=== PATIENT | male | born 1955 | race Caucasian/White ===

== ENCOUNTER → 2022-04-27 09:48 | Outpatient (CLI) | payer MEDICARE, SELFPAY ==
[2022-04-27 19:10] LABS: Add Manual Diff / Slide Review NO; Basophils Absolute Auto 0 /uL (0-100); Basophils Percent Auto 1.1 % (0-2); Eosinophils Absolute Auto 100 /uL (0-450); Eosinophils Percent Auto 3.5 % (2-4); Hemoglobin 14.6 g/dL (13.5-17.5); Lymphocytes Absolute Auto 1100 /uL (1100-4500); Lymphocytes Percent Auto 27.1 % (25-40); Mean Corpuscular HGB Conc 33.9 % (30-36); Mean Corpuscular Hemoglobin 29.8 PG (26-34); Mean Corpuscular Volume 87.8 fL (80-100); Monocytes Absolute Auto 600 /uL (0-900); Monocytes Percent Auto 14.1 % (3-14); Neutrophils Absolute Auto 2300 /uL (1500-7000); Neutrophils Percent Auto 54.2 % (50-75); Platelet Count 203 X10^3/uL (150-400); Red Blood Cell Count 4.89 X10^6/uL (4.5-5.9); Red Cell Distribution Width 13.9 % (11.6-14.8); White Blood Cell Count 4.2 X10^3/uL (4.5-11.0)
[2022-04-27 19:38] LABS: Hemoglobin A1C% w Est Avg Glu 5.8 % (4.0-6.0)
[2022-04-27 19:40] LABS: Alanine Aminotransferase 30 IU/L (<50); Albumin 4.7 g/dL (3.5-5.0); Albumin Globulin Ratio 1.9 (1.0-2.8); Alkaline Phosphatase 54 U/L (38-126); Aspartate Aminotransferase 34 IU/L (17-59); BUN Creatinine Ratio 26.2 (6-22); Bilirubin Total 0.6 mg/dL (0.2-1.3); Blood Urea Nitrogen 22 mg/dL (9-20); Calcium 9.4 mg/dL (8.4-10.2); Carbon Dioxide 29 mmol/L (22-32); Chloride 105 mmol/L (98-107); Cholesterol 152 mg/dL (140-199); Estimated Glomerular Filt Rate > 60 mL/min (>60); Globulin 2.5 g/dL (1.7-4.1); Glucose 127 mg/dL (80-110); HDL Cholesterol 66 mg/dL (40-60); HEMOLYSIS < 15 (0-50); LDL Cholesterol Calculated 70 mg/dL (<100); Sodium 140 mmol/L (137-145); Total Protein 7.2 g/dL (6.3-8.2); Triglycerides 82 mg/dL (35-150)
[2022-04-27 20:09] LABS: Prostate Specific Antigen Scrn 1.73 ng/mL (0.1-4.0)
== END ==
PROVIDERS: PCP Physician Assistant; Visit Provider Physician Assistant
DX: Z12.5 Encounter for screening for malignant neoplasm of prostate (principal); E78.5 Hyperlipidemia, unspecified; R73.03 Prediabetes; K21.9 Gastro-esophageal reflux disease without esophagitis; Z13.220 Encounter for screening for lipoid disorders
CPT/HCPCS: 80053; 80061; 83036; 85025; G0103

== ENCOUNTER → 2022-06-15 12:42 | Outpatient (CLI) | payer MEDICARE, SELFPAY ==
--- NOTE | 2022-06-15 12:44 | DI.US.S_ITS ---
PROCEDURE: US SOFT TISSUE HEAD AND NECK INDICATIONS: chronic throat pain; possible mass left side cervical TECHNIQUE: Real-time scanning was performed of the neck region of interest, with image documentation. COMPARISON: None. FINDINGS: Focused ultrasound examination of bilateral necks show no discrete soft tissue mass or fluid collection. Normal size lymph nodes are seen in bilateral neck soft tissue measures up to 1.1 x 1.2 x 0.5 cm on the right side and 1.1 x 1.5 x 0.5 cm on the left side. IMPRESSION: No soft tissue mass or fluid collection is seen in neck soft tissue. No neck soft tissue lymphadenopathy. Dictated by: Jere Grider M.D. on 06/15/2022 at 16:29 Approved by: Jere Grider M.D. on 06/15/2022 at 16:29
== END ==
PROVIDERS: PCP Physician Assistant; Referring Provider Physician Assistant; Visit Provider Physician Assistant
DX: J02.9 Acute pharyngitis, unspecified (principal)
CPT/HCPCS: 76536

== ENCOUNTER → 2023-04-19 11:17 | Outpatient (CLI) | payer MEDICARE, SELFPAY ==
[2023-04-19 19:59] LABS: Alanine Aminotransferase 29 IU/L (<50); Albumin 4.5 g/dL (3.5-5.0); Albumin Globulin Ratio 1.6 (1.0-2.8); Alkaline Phosphatase 48 U/L (38-126); Aspartate Aminotransferase 29 IU/L (17-59); BUN Creatinine Ratio 22.6 (6-22); Bilirubin Total 0.7 mg/dL (0.2-1.3); Blood Urea Nitrogen 19 mg/dL (9-20); Calcium 9.6 mg/dL (8.4-10.2); Carbon Dioxide 28 mmol/L (22-32); Chloride 101 mmol/L (98-107); Estimated Glomerular Filt Rate > 60 mL/min (>60); Globulin 2.9 g/dL (1.7-4.1); Glucose 121 mg/dL (80-110); HEMOLYSIS < 15 (0-50); Potassium 4.9 mmol/L (3.4-5.1); Sodium 137 mmol/L (137-145); Total Protein 7.4 g/dL (6.3-8.2)
[2023-04-19 20:25] LABS: Prostate Specific Antigen Scrn 2.02 ng/mL (0.1-4.0)
[2023-04-21 00:13] LABS: x Labcorp Estim. Avg Glu (eAG) 126 mg/dL (.)
[2023-04-21 10:55] LABS: Interpretation Negative (Negative)
== END ==
PROVIDERS: PCP Physician Assistant; Visit Provider Physician Assistant
DX: Z12.5 Encounter for screening for malignant neoplasm of prostate (principal); K21.9 Gastro-esophageal reflux disease without esophagitis; E78.5 Hyperlipidemia, unspecified; R73.03 Prediabetes
CPT/HCPCS: 80053; 83013; 83036; G0103

== ENCOUNTER → 2023-05-25 11:39 | Outpatient (CLI) | payer MEDICARE, SELFPAY ==
[2023-05-25 19:41] LABS: Appearance Urine UA CLEAR; Bilirubin Urine UA NEGATIVE (NEGATIVE); Color Urine UA YELLOW; Glucose Urine UA NEGATIVE (Negative); Ketones Urine UA NEGATIVE (NEGATIVE); Leukocyte Esterase Urine UA NEGATIVE (NEGATIVE); Nitrite Urine UA NEGATIVE (Negative); Occult Blood Urine UA TRACE-INTACT (Negative); Protein Urine UA NEGATIVE (Negative); Specific Gravity Urine UA 1.025 (1.000-1.035); Urobilinogen Urine UA 0.2 E.U./dL (0.2); pH Urine UA 5.5 (4.5-8.0)
== END ==
PROVIDERS: PCP Physician Assistant; Visit Provider Urology
DX: R31.21 Asymptomatic microscopic hematuria (principal); Z87.891 Personal history of nicotine dependence
CPT/HCPCS: 81003

== ENCOUNTER → 2023-06-01 11:19 | Outpatient (CLI) | payer MEDICARE, SELFPAY ==
[2023-06-01 21:14] LABS: Appearance Urine UA CLEAR; Bilirubin Urine UA NEGATIVE (NEGATIVE); Color Urine UA YELLOW; Glucose Urine UA NEGATIVE (Negative); Ketones Urine UA NEGATIVE (NEGATIVE); Leukocyte Esterase Urine UA NEGATIVE (NEGATIVE); Nitrite Urine UA NEGATIVE (Negative); Occult Blood Urine UA NEGATIVE (Negative); Protein Urine UA NEGATIVE (Negative); Specific Gravity Urine UA 1.025 (1.000-1.035); Urobilinogen Urine UA 0.2 E.U./dL (0.2); pH Urine UA 5.5 (4.5-8.0)
== END ==
PROVIDERS: PCP Physician Assistant; Visit Provider Urology
DX: R31.21 Asymptomatic microscopic hematuria (principal); Z87.891 Personal history of nicotine dependence
CPT/HCPCS: 81003

== ENCOUNTER → 2023-06-08 11:19 | Outpatient (CLI) | payer MEDICARE, SELFPAY ==
[2023-06-08 20:17] LABS: Appearance Urine UA CLEAR; Bilirubin Urine UA NEGATIVE (NEGATIVE); Color Urine UA YELLOW; Glucose Urine UA NEGATIVE (Negative); Ketones Urine UA NEGATIVE (NEGATIVE); Leukocyte Esterase Urine UA NEGATIVE (NEGATIVE); Nitrite Urine UA NEGATIVE (Negative); Occult Blood Urine UA NEGATIVE (Negative); Protein Urine UA NEGATIVE (Negative); Urobilinogen Urine UA 0.2 E.U./dL (0.2)
== END ==
PROVIDERS: PCP Physician Assistant; Visit Provider Urology
DX: R31.21 Asymptomatic microscopic hematuria (principal); Z87.891 Personal history of nicotine dependence
CPT/HCPCS: 81003

== ENCOUNTER 2023-06-23 11:15 | Day surgery (SDC) | payer MEDICARE, SELFPAY ==
--- NOTE | 2023-06-23 | PATH_ITS ---
[facility] Accession Number: [id number] No. of containers..03 Tissue . 01 Material submitted: . PART A: stomach - ANTRUM PART B: duodenum - DUODENUM PART C: duodenum bulb - DUODENAL BULB . 01 Diagnosis: A- STOMACH, ANTRUM, BIOPSY: ANTRAL GASTRIC MUCOSA WITH MILD REACTIVE GASTROPATHY. NO H. PYLORI LIKE ORGANISMS IDENTIFIED (BY THE H/E AND IMMUNOHISTOCHEMICAL STAINED SLIDE SECTIONS). NO INTESTINAL METAPLASIA, DYSPLASIA OR MALIGNANCY IDENTIFIED. SEE COMMENT: - B- DUODENUM, BIOPSY: BENIGN DUODENAL MUCOSA WITH PRESERVED VILLOUS ARCHITECTURE AND NO EVIDENCE OF CELIAC DISEASE. NEGATIVE FOR ACTIVE OR CHRONIC INFLAMMATION. - C- DUODENAL BULB, BIOPSY: BENIGN DUODENAL MUCOSA WITH PRESERVED VILLOUS ARCHITECTURE AND NO EVIDENCE OF CELIAC DISEASE. NEGATIVE FOR ACTIVE OR CHRONIC INFLAMMATION. . COMMENT: H. PYLORI IMMUNOHISTOCHEMICAL STAIN WAS PERFORMED ON PART A AND IS NEGATIVE. TECHNICAL NOTE: THE IMMUNOHISTOCHEMICAL STAINS REPORTED WERE PERFORMED AT [facility] ([address], [facility] [address]). THEY WERE DEVELOPED AND THEIR PERFORMANCE CHARACTERISTICS DETERMINED BY [facility], [email or web address]. THEY HAVE NOT BEEN CLEARED OR APPROVED BY THE [employer], ALTHOUGH SUCH APPROVAL IS NOT REQUIRED FOR ANALYTE-SPECIFIC REAGENTS OF THIS TYPE. TXN 07/06/2023 1348 [facility] . 01 Electronically signed: . Tawterri Wagner MD, Pathologist NPI- [id number] . 01 Gross description: . Part A: ANTRUM: Received in formalin is multiple fragment(s) of scruggs, soft tissue measuring 0.8 x 0.4 x 0.1 cm in aggregate submitted entirely in 1 cassette(s) Part B: DUODENUM: Received in formalin is 1 fragment(s) of scruggs, soft tissue measuring 0.3 x 0.2 x 0.2 cm submitted entirely in 1 cassette(s) Part C: DUODENAL BULB: Received in formalin is 2 fragment(s) of scruggs, soft tissue measuring 0.3 x 0.2 x 0.1 cm to 0.2 x 0.2 x 0.1 cm submitted entirely in 1 cassette(s) /AAY 06/28/2023 0730 [facility] . 01 Pathologist provided ICD-10: R10.9, K21.9 . 01 CPT . 493533, 061526, 045062, [id number] Specimen Comment: A courtesy copy of this report has been sent to [phone] Performed at: 01 [facility] [address] [place] [address], [place], [place] [id number] MD Felice Dempsey MD Phone: [phone]
[2023-06-23 11:29] VITALS: BP 159/91; PULSE 66; RESP 16; TEMP 36.6; O2SAT 96; BMI 24.5
[2023-06-23] MEDS: LACTATED RINGERS 1,000 ML 84 ML IV (11:38)
--- NOTE | 2023-06-23 12:43 | PM.HP.1 ---
History of Present Illness History of Present Illness Date Patient Seen: 06/23/23 Time Patient Seen: 12:43 Chief complaint: EGD w/poss bx Narrative: Salvador is here for his EGD. See office note from April for details. He has had gastroesophageal reflux for years but it has worsened recently. [facility] Medical History (Updated 06/21/23 @ 11:40 by Jnaak Silva MD) Asymptomatic microscopic hematuria Colon cancer screening Depression History of tobacco use Lower urinary tract symptoms Male circumcision Medicare annual wellness visit, initial Sore throat Testicular pain, right Surgical History Anesthesia History of colonoscopy History of eye surgery (~1958) Family History Father History of heart disease Mother Cancer Sister Cancer Family/Other Asperger's syndrome Autism spectrum Family/Other Suicide Social History marital status: number of children: 2 household members: spouse Smoking Status: Former smoker alcohol intake: current Type(s) of exercise: walking frequency: daily Meds Home Medications and Allergies Home Medications Medication Instructions Recorded Confirmed Type atorvastatin 20 mg tablet 20 mg PO DAILY #90 tabs 04/19/23 06/23/23 Rx sildenafil 50 mg tablet 50 mg PO DAILY PRN Erectile 04/19/23 06/23/23 History Dysfunction omeprazole 20 mg capsule,delayed 20 mg PO DAILY Heartburn issues 06/21/23 06/23/23 History release Allergies Allergy/AdvReac Type Severity Reaction Status Date / Time No Known Drug Allergies Allergy Verified 06/23/23 11:27 Exam Vital Signs (past 8 hours): - 06/23/23 11:29 Temperature 97.9 F Pulse Rate 66 Respiratory Rate 16 Blood Pressure 159/91 H Pulse Oximetry 96 Oxygen Delivery Method Room Air Oxygen Delivery Method Room Air Const General: healthy appearing Assessment & Plan Assessment and plan (1) GERD (gastroesophageal reflux disease): Problem details: per GI ok to continue w/ daily suppressive PPI or H2B Qualifiers: Esophagitis presence: esophagitis presence not specified Qualified Code(s): K21.9 - Gastro-esophageal reflux disease without esophagitis Status: Acute Plan We reviewed the risks and benefits of esophagogastroduodenoscopy and he would like to proceed.
[2023-06-23 13:01] VITALS: BP 117/78; PULSE 74; RESP 12; TEMP 36.5; O2SAT 97
--- NOTE | 2023-06-23 13:03 | PM.OP.EGD ---
Operative Date/Time/Diagnoses Date of procedure: 06/23/23 Time of procedure: 13:03 Pre-op diagnosis: GERD Post-op diagnosis: same Procedure & Clinicians Study performed: Esophagogastroduodenoscopy Same procedure as scheduled: Yes Surgeon: Redd Alicia Procedure Notes Procedure in detail: Surgeon: Redd Alicia MD Anesthesia: Ziggy Dimas timeout was performed. A bite blocked was placed. The patient was positioned in the left lateral decubitus position. Anesthesia was administered. The endoscope was inserted through the bite block and passed through the esophagus and stomach and into the duodenum. The duodenal mucosa appeared normal. Some random biopsies were taken from the duodenal mucosa. The scope was withdrawn into the duodenal bulb and random biopsies were taken from the duodenal bulb mucosa. The scope was withdrawn into the stomach. There was some mild antritis and random biopsies were taken from the antrum. The rest of the stomach was normal other than some debris in the body of the stomach. The scope was retroflexed and no hiatal hernia was seen. The scope was withdrawn into the esophagus and no abnormalities were seen. The remainder of the esophagus was normal. The scope was withdrawn. The patient was awakened and brought to recovery. Sedation time: 7 minutes Findings: Mild antritis Post-procedure Disposition: PACU
[2023-06-23 13:06] VITALS: BP 116/77; PULSE 66; RESP 12; O2SAT 99
[2023-06-23 13:11] VITALS: BP 118/77; PULSE 63; RESP 12; O2SAT 99
[2023-06-23 13:15] VITALS: BP 129/97; PULSE 67; RESP 12; O2SAT 99
[2023-06-23 13:27] VITALS: BP 148/100; PULSE 64; RESP 12; TEMP 37; O2SAT 97
== END 2023-06-23 13:35 | disposition home or self-care (01) ==
PROVIDERS: PCP Family Medicine; Referring Provider Surgery; Visit Provider Surgery
PROC: 0DJ08ZZ Inspection of Upper Intestinal Tract, Via Natural or Artificial Opening Endoscopic (ICD-10-PCS; CPT 43235; principal; 2023-06-23 12:30)
DX: K31.9 Disease of stomach and duodenum, unspecified (principal)
CPT/HCPCS: 43239; J2704

== ENCOUNTER → 2023-09-05 11:23 | Outpatient (CLI) | payer MEDICARE, SELFPAY ==
[2023-09-05 19:37] LABS: Add Manual Diff / Slide Review NO; Basophils Absolute Auto 0 /uL (0-100); Basophils Percent Auto 0.8 % (0-2); Eosinophils Absolute Auto 100 /uL (0-450); Eosinophils Percent Auto 2.4 % (2-4); Hematocrit 41.3 % (41-53); Lymphocytes Absolute Auto 1500 /uL (1100-4500); Lymphocytes Percent Auto 31.8 % (25-40); Mean Corpuscular HGB Conc 33.9 % (30-36); Mean Corpuscular Hemoglobin 29.7 PG (26-34); Mean Corpuscular Volume 87.6 fL (80-100); Monocytes Absolute Auto 500 /uL (0-900); Monocytes Percent Auto 11.4 % (3-14); Neutrophils Absolute Auto 2500 /uL (1500-7000); Neutrophils Percent Auto 53.6 % (50-75); Platelet Count 196 X10^3/uL (150-400); Red Blood Cell Count 4.71 X10^6/uL (4.5-5.9); Red Cell Distribution Width 13.9 % (11.6-14.8); White Blood Cell Count 4.6 X10^3/uL (4.5-11.0)
[2023-09-05 19:48] LABS: BUN Creatinine Ratio 23.9 (6-22); Blood Urea Nitrogen 22 mg/dL (9-20); Calcium 9.7 mg/dL (8.4-10.2); Carbon Dioxide 28 mmol/L (22-32); Chloride 104 mmol/L (98-107); Estimated Glomerular Filt Rate > 60 mL/min (>60); Glucose 120 mg/dL (80-110); HEMOLYSIS < 15 (0-50); Potassium 4.8 mmol/L (3.4-5.1); Sodium 141 mmol/L (137-145)
[2023-09-05 21:22] LABS: Creatinine Urine Random 129.5 mg/dL
[2023-09-05 21:26] LABS: Microalbumi Creatinin Ratio Ur 23.9 ug/mg CR (<30); Microalbumin Urine Random 3.1 mg/dL (0-1.6)
== END ==
PROVIDERS: PCP Family Medicine; Visit Provider Family Medicine
DX: K21.9 Gastro-esophageal reflux disease without esophagitis (principal); R73.03 Prediabetes; R31.21 Asymptomatic microscopic hematuria; E78.5 Hyperlipidemia, unspecified; D72.819 Decreased white blood cell count, unspecified
CPT/HCPCS: 80048; 82043; 82570; 83036; 85025

== ENCOUNTER → 2023-09-12 12:18 | Outpatient (CLI) | payer MEDICARE, SELFPAY ==
[2023-09-12 19:24] LABS: Cholesterol 154 mg/dL (140-199); HDL Cholesterol 64 mg/dL (40-60); LDL Cholesterol Calculated 76 mg/dL (<100); Triglycerides 70 mg/dL (35-150)
== END ==
PROVIDERS: PCP Family Medicine; Visit Provider Family Medicine
DX: E78.5 Hyperlipidemia, unspecified (principal)
CPT/HCPCS: 80061

== ENCOUNTER 2023-10-04 08:00 | Day surgery (SDC) | payer MEDICARE, SELFPAY ==
[2023-10-03 10:53] VITALS: BMI 24.3
[2023-10-04 08:19] VITALS: BMI 24.3
[2023-10-04 08:32] VITALS: BP 136/83; PULSE 63; RESP 16; TEMP 36.9; O2SAT 99
[2023-10-04] MEDS: LACTATED RINGERS 1,000 ML 42 ML IV (08:32)
--- NOTE | 2023-10-04 08:32 | PM.HP.1 ---
History of Present Illness History of Present Illness Date Patient Seen: 10/04/23 Time Patient Seen: 08:32 Chief complaint: Open RIH Repair w/mesh Narrative: Salvador is a 68-year-old man with a right inguinal hernia. See office note from May for details. He reports no changes to his right inguinal hernia symptoms since May. [facility] Medical History (Updated 09/12/23 @ 12:51 by Janak Silva MD) Lower urinary tract symptoms History of tobacco use Male circumcision Testicular pain, right Sore throat Medicare annual wellness visit, initial Colon cancer screening Depression Surgical History Anesthesia History of colonoscopy History of eye surgery (~1958) Family History Father History of heart disease Mother Cancer Sister Cancer Family/Other Asperger's syndrome Autism spectrum Family/Other Suicide Social History marital status: number of children: 2 household members: spouse Smoking Status: Former smoker alcohol intake: current Type(s) of exercise: walking frequency: daily Meds Home Medications and Allergies Home Medications Medication Instructions Recorded Confirmed Type sildenafil 50 mg tablet 50 mg PO DAILY PRN Erectile 04/19/23 10/04/23 History Dysfunction omeprazole 20 mg capsule,delayed 20 mg PO DAILY Heartburn issues 06/21/23 10/04/23 History release atorvastatin 20 mg tablet 20 mg PO DAILY #90 tabs 07/27/23 10/04/23 Rx Allergies Allergy/AdvReac Type Severity Reaction Status Date / Time No Known Drug Allergies Allergy Verified 10/04/23 08:14 Exam Narrative Exam Narrative: Right inguinal hernia Const General: healthy appearing Assessment & Plan Assessment and plan (1) Inguinal hernia, right: Status: Acute Plan We reviewed the risks and benefits of an open right inguinal hernia repair with mesh and he would like to proceed.
[2023-10-04] MEDS: CEFAZOLIN 2 GM/100 ML PREMIX 100 ML IV (08:49)
--- NOTE | 2023-10-04 09:05 | SUR.OPER ---
Supine on padded OR bed, head on pillow, arms secured on padded arm boards at <90 degrees abduction, legs uncrossed, safety belt at thigh, tape over blanket over lower legs.
[2023-10-04] MEDS: BUPIVACAINE 0.5% (PF) 30 ML, EPINEPHrine 0.15 MG INJ (09:10)
[2023-10-04 10:00] VITALS: BP 141/77; PULSE 75; RESP 14; TEMP 35.9; O2SAT 99
--- NOTE | 2023-10-04 10:00 | PM.OP.1 ---
Operative Date/Time/Diagnoses Date of procedure: 10/04/23 Time of procedure: 10:00 Pre-op diagnosis: Right inguinal hernia Post-op diagnosis: same Procedure & Clinicians Procedure: Open right inguinal hernia repair with mesh Same procedure as scheduled: Yes Surgeon: Redd Alicia Anesthesia Type: General Operative Notes Procedure in detail: Preoperative antibiotic was administered. The patient was brought to the operating room and placed on the table in supine position general anesthesia was induced. The right groin was prepped and draped in the normal fashion and a time-out was performed. Roughly 10 mL of local anesthetic were injected into the skin and subcutaneous adipose tissue over the right groin. A 6 cm incision was made over the right inguinal canal. Dissection was carried down through the subcutaneous adipose tissue. We exposed the external oblique aponeurosis in the direction of the fibers. Additional local was injected deep to the aponeurosis. A 15 blade scalpel was used to estela the external oblique aponeurosis. Metzenbaum scissors were used to carefully open the aponeurosis in the direction of the fibers taking care not to injure the underlying ilioinguinal nerve. We completely exposed the inguinal canal. The cord was dissected free from the inguinal ligament and floor of the inguinal canal and the external oblique aponeurosis was dissected off of the internal oblique taking care not to injure the hypogastric nerve. We encircled the cord with a Thomas drain for retraction. There was an indirect defect and a small cord lipoma. The cord lipoma and hernia were dissected off the cord structures and reduced into the abdomen. We then placed a polypropylene mesh against the floor of the inguinal canal. The mesh was secured with multiple interrupted 3-0 Prolene sutures to the pubic tubercle and shelving edge of the inguinal ligament as well as to the conjoint tendon medially. We overlapped the tails to recreate an internal ring and secured the medial tail to the inguinal ligament with additional sutures. We injected some more local into the fatty tissue in the inguinal canal and cord. Finally, we removed the Sally drain and closed the external oblique fascia with a running 3-0 Vicryl suture. Skin was closed with interrupted 3-0 Vicryl dermal sutures and a running 4 Monocryl subcuticular stitch. EBL 5 mL The patient was awakened and brought to recovery room. Post-operative Condition: stable Disposition: PACU
[2023-10-04 10:05] VITALS: BP 141/81; PULSE 74; RESP 15; O2SAT 97
[2023-10-04] MEDS: ACETAMINOPHEN 325 MG TABLET 650 MG PO (10:06)
[2023-10-04 10:10] VITALS: BP 141/86; PULSE 66; RESP 13; TEMP 35.9; O2SAT 98
[2023-10-04 10:15] VITALS: BP 141/86; PULSE 62; RESP 13; TEMP 35.9; O2SAT 97
[2023-10-04 10:30] VITALS: BP 139/88; PULSE 63; RESP 16; TEMP 36.1; O2SAT 98
[2023-10-04 11:11] LABS: Alanine Aminotransferase 31 IU/L (<50)
[2023-10-05 17:10] LABS: Hepatitis B Surface Antigen NEGATIVE s/c (NEGATIVE)
[2023-10-05 17:23] LABS: HIV 1 & 2 Ab/Ag 4th Gen Combo NEGATIVE (NEGATIVE); Hep C Virus Ab w/Reflex Quant NEGATIVE s/c (NEGATIVE)
[2023-10-05 20:04] LABS: Hepatitis B Surf Ab Qualitativ Non Reactive (.)
== END 2023-10-04 10:45 | disposition home or self-care (01) ==
PROVIDERS: PCP Family Medicine; Referring Provider Surgery; Visit Provider Surgery
PROC: (CPT 49505; principal; 2023-10-04 09:15)
DX: K40.90 Unilateral inguinal hernia, without obstruction or gangrene, not specified as recurrent (principal); D17.6 Benign lipomatous neoplasm of spermatic cord
CPT/HCPCS: 49505; J0171; J0690; J1100; J2250; J2405; J2704; J3010

== ENCOUNTER → 2023-11-14 14:01 | Outpatient (CLI) | payer MEDICARE, SELFPAY ==
[2023-11-14 19:52] LABS: Appearance Urine UA CLEAR; Bilirubin Urine UA NEGATIVE (NEGATIVE); Color Urine UA YELLOW; Glucose Urine UA NEGATIVE (Negative); Ketones Urine UA NEGATIVE (NEGATIVE); Leukocyte Esterase Urine UA NEGATIVE (NEGATIVE); Nitrite Urine UA NEGATIVE (Negative); Occult Blood Urine UA TRACE-INTACT (Negative); Protein Urine UA NEGATIVE (Negative); Specific Gravity Urine UA >=1.030 (1.000-1.035); Urobilinogen Urine UA 0.2 E.U./dL (0.2)
[2023-11-14 20:06] LABS: Bacteria Urine None Seen; Culture Indicated Urine Cult Not Indicated; RBC Urine 0-1/HPF (0-5/HPF); Squamous Epithelial Cell Urine 0-1 /HPF (0-5/HPF); WBC Urine 0-1/HPF (0-5/HPF)
== END ==
PROVIDERS: PCP Family Medicine; Visit Provider Urology
DX: R39.9 Unspecified symptoms and signs involving the genitourinary system (principal); R31.29 Other microscopic hematuria
CPT/HCPCS: 81001

== ENCOUNTER → 2023-12-02 09:23 | Outpatient (CLI) | payer MEDICARE, SELFPAY ==
--- NOTE | 2023-12-02 09:26 | DI.CT.S_ITS ---
PROCEDURE: CT ABDOMEN PELVIS WO/W CON INDICATIONS: Asymptomatic microscopic hematuria/history of tobacco use TECHNIQUE: Optional 5 mm thick noncontrast images acquired from the diaphragm to the symphysis pubis. After the administration of intravenous contrast, 5 mm thick images acquired from the diaphragm to the symphysis pubis after a 10-minute delay. 2 mm thick coronal and sagittal reformats were then performed of the kidneys and ureters. For radiation dose reduction, the following was used: automated exposure control, adjustment of mA and/or kV according to patient size. COMPARISON: None. FINDINGS: Image quality: Diagnostic. Kidneys and Ureters: Both kidneys are normal in size, without hydronephrosis or nephrolithiasis. No perinephric fat stranding. There is normal bilateral renal enhancement. Renal calyces appear normal in morphology when filled with contrast. Opacified portions of both ureters demonstrate normal caliber Bladder: Bladder wall thickness is normal. No calcified bladder stones. OTHER: Lower chest: Unremarkable. Liver: No solid mass. Gallbladder: No radiopaque gallstones or wall thickening. Biliary ducts: No biliary dilation. Pancreas: No ductal dilation. Spleen: Size is within normal limits. Adrenal Glands: No adrenal nodules. Stomach and Bowel: Normal colonic caliber, without significant wall thickening. Normal appendix Peritoneum: No abnormal intraperitoneal fluid. No free air. Ventral Wall: No significant hernia. Abdominal Nodes: No retroperitoneal or mesenteric adenopathy by size criteria. Vessels: Aorta and inferior vena cava are normal in size. PELVIS: Pelvic Organs: Prominent prostate gland. Pelvic Nodes: No enlarged lymph nodes. Miscellaneous: No inguinal hernias are seen. Scarring at the right groin. Bones: No aggressive osseous abnormality. Benign L2 intraosseous hemangioma. IMPRESSION: 1. No kidney stones. No hydronephrosis. 2. No solid renal mass. 3. No upper urinary tract filling defect. Dictated by: Win Hilton M.D. on 12/02/2023 at 13:22 Approved by: Win Hilton M.D. on 12/02/2023 at 13:27
[2023-12-02 09:57] LABS: Estimated Glomerular Filt Rate > 60 mL/min (>60)
== END ==
LOC: CT 09:24
PROVIDERS: Radiology Diagnostic Radiology; PCP Family Medicine; Referring Provider Urology; Visit Provider Urology
DX: R31.21 Asymptomatic microscopic hematuria (principal); Z87.891 Personal history of nicotine dependence
CPT/HCPCS: 36415; 74178; 82565; Q9967

== ENCOUNTER → 2024-04-10 09:46 | Outpatient (CLI) | payer MEDICARE, SELFPAY ==
[2024-04-13 18:56] LABS: Fecal Immunochemical Test Negative (Negative)
== END ==
LOC: LAB 07-02 09:42
PROVIDERS: PCP Family Medicine; Referring Provider Physician Assistant; Visit Provider Physician Assistant
DX: Z12.11 Encounter for screening for malignant neoplasm of colon (principal)
CPT/HCPCS: 82274

== ENCOUNTER → 2024-04-24 11:55 | Outpatient (CLI) | payer MEDICARE, SELFPAY ==
--- NOTE | 2024-04-24 11:56 | DI.MRI.S_ITS ---
PROCEDURE: MR HEAD/BRAIN WO/W CON INDICATIONS: Dizziness, brain fog, memory change, morning headaches. TECHNIQUE: Noncontrast axial T1 spin echo, axial T2 fast spin echo, sagittal and axial FLAIR, coronal T2 fast spin echo, axial gradient echo, axial diffusion and ADC through the brain. After the administration of contrast, axial and coronal and sagittal T1 spin echo with fat saturation through the brain. COMPARISON: None. FINDINGS: Image quality: Excellent. CSF spaces: Basal cisterns are patent. No extra-axial fluid collections. Ventricles are normal in size and shape. Brain: No midline shift. No intracranial bleeds or masses. No abnormal intracranial enhancement. There is cerebral volume loss for age. There is periventricular white matter chronic small vessel ischemic change. The brainstem appears normal. Diffusion-weighted images demonstrate no acute infarct. No chronic ischemic insults. Normal intravascular flow voids are present. Note is made that the pituitary tissue is largely flattened along the floor of the sella turcica. This is considered to be an anatomic variant. Skull and face: Calvarial marrow is normal in signal. Orbits appear normal. Sinuses: Early mucous retention cysts can be seen within the left maxillary sinus. Sinuses and mastoids otherwise are relative clear. IMPRESSION: No imaging explanation is found for this patient's presenting symptoms. No masses or abnormal enhancement can be seen. Note is made of age-appropriate brain parenchymal volume loss and chronic small vessel ischemic changes. No prior territorial infarct can be seen. No findings of acute or subacute infarction can be seen. Dictated by: Anirudh Wu M.D. on 04/24/2024 at 12:26 Approved by: Anirudh Wu M.D. on 04/24/2024 at 12:27
== END ==
PROVIDERS: PCP Family Medicine; Referring Provider Physician Assistant; Visit Provider Physician Assistant
DX: R42 Dizziness and giddiness (principal)
CPT/HCPCS: 70553; A9579

== ENCOUNTER → 2024-07-06 10:49 | Outpatient (CLI) | payer MEDICARE, SELFPAY ==
--- NOTE | 2024-07-06 10:51 | DI.MRI.S_ITS ---
PROCEDURE: MR BRAIN (IAC) WWO CON INDICATIONS: unilateral tinnitus left side TECHNIQUE: Noncontrast sagittal T1 spin echo, axial FLAIR, axial gradient echo, axial diffusion and ADC through the brain. Axial thin-slice 3D CISS, coronal TruFISP, axial T1 spin echo with fat saturation through the internal auditory canals. After the administration of contrast, thin slice axial and coronal T1 spin echo with fat saturation through the internal auditory canals, and axial and coronal and sagittal T1 spin echo with fat saturation through the brain. COMPARISON: [facility], MR, MR HEAD/BRAIN WO/W CON, 04/24/2024, 12:14. FINDINGS: Image quality: Excellent. Cerebellopontine angles: No cerebellopontine angle masses. Inner ear structures appear normally formed. No suspicious enhancement in the internal auditory canal or along the course of the 7th cranial nerve. CSF spaces: Ventricles are normal in size and shape. No extra-axial fluid collections. Basal cisterns are patent. Brain: No intracranial bleeds or mass effects. Mauro-white matter interface is intact. No abnormal intracranial enhancement. Diffusion weighted images demonstrate no acute ischemic insults. Brainstem appears normal. Normal intravascular flow voids are present. Note is made of age-appropriate brain parenchymal volume loss and chronic small vessel ischemic changes. Skull and face: Calvarial marrow signal is normal. Orbits appear normal. Sinuses: Sinuses and mastoids are clear. IMPRESSION: No significant abnormality is seen. Specifically, no masses or abnormal enhancement are seen within the cerebellopontine angle cisterns or within the internal auditory canals. Dictated by: Anirudh Wu M.D. on 07/06/2024 at 12:42 Approved by: Anirudh Wu M.D. on 07/06/2024 at 12:44
== END ==
PROVIDERS: PCP Family Medicine; Referring Provider Family Medicine; Visit Provider Family Medicine
DX: H93.12 Tinnitus, left ear (principal)
CPT/HCPCS: 70553; A9579

== ENCOUNTER → 2024-11-23 10:07 | Outpatient (CLI) | payer MEDICARE, SELFPAY ==
[2024-11-23 18:12] LABS: BUN Creatinine Ratio 19.4 (6-22); Blood Urea Nitrogen 18 mg/dL (9-20); Calcium 9.1 mg/dL (8.4-10.2); Carbon Dioxide 27 mmol/L (22-32); Chloride 104 mmol/L (98-107); Cholesterol 149 mg/dL (140-199); Estimated Glomerular Filt Rate > 60 mL/min (>60); Glucose 117 mg/dL (80-110); HDL Cholesterol 65 mg/dL (40-60); Hemoglobin A1C% w Est Avg Glu 5.7 % (4.0-6.0); LDL Cholesterol Calculated 71 mg/dL (<100); Sodium 134 mmol/L (137-145); Triglycerides 66 mg/dL (35-150)
[2024-11-23 18:28] LABS: HEMOLYSIS 125 (0-50)
[2024-11-23 18:29] LABS: Potassium 5.1 mmol/L (3.4-5.1)
== END ==
PROVIDERS: PCP Family Medicine; Visit Provider Family Medicine
DX: R73.03 Prediabetes (principal); E78.5 Hyperlipidemia, unspecified
CPT/HCPCS: 80048; 80061; 83036

== ENCOUNTER → 2024-12-18 12:34 | Outpatient (CLI) | payer MEDICARE, SELFPAY ==
--- NOTE | 2024-12-18 12:35 | DI.US.S_ITS ---
PROCEDURE: US ABDOMEN LIMITED INDICATIONS: right groin pain, swelling TECHNIQUE: Real-time focused scanning was performed of the inguinal region, with image documentation. COMPARISON: None. FINDINGS: Unremarkable soft tissue. Fascial planes maintained. No hernia para IMPRESSION: Normal right inguinal soft tissue ultrasound. No hernia. Approved by: Dl Molina M.D. on 12/18/2024 at 18:05
== END ==
PROVIDERS: PCP Family Medicine; Referring Provider Physician Assistant; Visit Provider Physician Assistant
DX: R10.31 Right lower quadrant pain (principal); R10.2 Pelvic and perineal pain
CPT/HCPCS: 76705